=== PATIENT | female | born 1995 | race Caucasian/White ===

== ENCOUNTER 2016-09-09 10:35 | Emergency (ER) | payer MEDICAID, OTHER ==
--- NOTE | 2016-09-09 11:04 | ER Document Report ---
ED Medical Screen (RME) - General Chief Complaint: Headache Stated Complaint: WEAKNESS Time Seen by Provider: 09/09/16 11:01 Mode of Arrival: Ambulatory Information source: Patient Notes: -year-old female presents to ED with dizziness sleepiness unable to be aware of her surroundings at times nausea headaches migraines and shakes. She states that over the last couple days her mother has had to come out of the room and wake her up when her child was screaming decided. Patient does not have any psych history the only pain she is having now is headache she has had some dizziness lightheadedness. She is on Depakote last menstrual period was 2016. She does have a condition where her arms and legs are not the same size from left to right and has developed some most of her pain. I have greeted and performed a rapid initial assessment of this patient. A comprehensive ED assessment and evaluation of the patient, analysis of test results and completion of medical decision making process will be conducted by an additional ED providers. TRAVEL OUTSIDE OF THE [place] IN LAST 30 DAYS: No - Related Data Allergies/Adverse Reactions: cefixime [From Suprax] Allergy (Intermediate, Verified 09/09/16 10:38) Hives clarithromycin [From Biaxin] Allergy (Intermediate, Verified 09/09/16 10:38) Hives latex [Latex] Allergy (Verified 09/09/16 10:38) ondansetron HCl [From Zofran] Allergy (Verified 09/09/16 10:38) biaxin Allergy (Intermediate, Uncoded 09/09/16 10:38) Hives latex Allergy (Uncoded 09/09/16 10:38) Past Medical History Renal/ Medical History: Denies: Hx Peritoneal Dialysis Physical Exam - Vital signs Vitals: Temp Pulse Resp BP Pulse Ox 97.7 F 90 19 124/81 97 09/09/16 10:38 09/09/16 10:38 09/09/16 10:38 09/09/16 10:38 09/09/16 10:38 Course - Vital Signs Vital signs: Temp Pulse Resp BP Pulse Ox 97.7 F 90 19 124/81 97 09/09/16 10:38 09/09/16 10:38 09/09/16 10:38 09/09/16 10:38 09/09/16 10:38
[2016-09-09 12:20] LABS: ABSOLUTE EOSINOPHILS # (AUTO) 0.1 10^3/uL (0.0-0.6); ABSOLUTE LYMPHOCYTES (AUTO) 1.9 10^3/uL (0.5-4.7); ABSOLUTE MONOCYTES (AUTO) 0.3 10^3/uL (0.1-1.4); ABSOLUTE NEUT (AUTO) 4.5 10^3/uL (1.7-8.2); BASOPHILS % (AUTO) 0.3 % (0-2); HEMATOCRIT 38.5 % (36.0-47.0); HEMOGLOBIN 12.4 g/dL (12.0-15.5); HGB HCT DIFFERENCE -1.3; LYMPHOCYTES % (AUTO) 27.5 % (13-45); MEAN CORPUSCULAR HEMOGLOBIN 27.4 pg (27.0-33.4); MEAN CORPUSCULAR HGB CONC 32.1 g/dL (32.0-36.0); MEAN CORPUSCULAR VOLUME 85 fl (80-97); MONOCYTES % (AUTO) 4.4 % (3-13); RED BLOOD COUNT 4.52 10^6/uL (3.72-5.28); RED CELL DISTRIBUTION WIDTH 14.3 % (11.5-14.0); SEGMENTED NEUTROPHILS % (AUTO) 66.8 % (42-78); WHITE BLOOD COUNT 6.7 10^3/uL (4.0-10.5)
[2016-09-09 12:25] LABS: APPEARANCE,URINE SLIGHTLY-CLOUDY; BILIRUBIN,URINE NEGATIVE (NEGATIVE); GLUCOSE, URINE NEGATIVE (NEGATIVE); KETONES,URINE NEGATIVE (NEGATIVE); LEUKOCYTE ESTERASE,URINE TRACE (NEGATIVE); NITRITE,URINE NEGATIVE (NEGATIVE); PROTEIN,URINE NEGATIVE (NEGATIVE); URINE SPECIFIC GRAVITY 1.025; UROBILINOGEN,URINE NEGATIVE mg/dL (<2.0)
[2016-09-09 12:37] LABS: ALANINE AMINOTRANSFERASE 35 U/L (9-52); ALBUMIN 4.8 g/dL (3.5-5.0); ALKALINE PHOSPHATASE 86 U/L (38-126); ANION GAP 17 (5-19); ASPARTATE AMINO TRANSFERASE 20 U/L (14-36); BILIRUBIN,DIRECT 0.2 mg/dL (0.0-0.4); BILIRUBIN,TOTAL 1.1 mg/dL (0.2-1.3); BLOOD UREA NITROGEN 12 mg/dL (7-20); CALCIUM 9.8 mg/dL (8.4-10.2); CARBON DIOXIDE 22 mmol/L (22-30); CHLORIDE 105 mmol/L (98-107); CREATININE RESULT 0.56 mg/dL (0.52-1.25); GLUCOSE 84 mg/dL (75-110); POTASSIUM 4.5 mmol/L (3.6-5.0); SODIUM 144.3 mmol/L (137-145)
--- NOTE | 2016-09-09 14:10 | ER Document Report ---
ED General - General Chief Complaint: Headache Stated Complaint: WEAKNESS Time Seen by Provider: 09/09/16 11:01 Mode of Arrival: Ambulatory Information source: Patient TRAVEL OUTSIDE OF THE [place] IN LAST 30 DAYS: No - HPI Patient complains to provider of: Fatigue, headache, nausea, dizziness Onset: Other - 2 Weeks Onset/Duration: Intermittent Quality of pain: Achy Severity: Mild Pain Level: 1 Associated symptoms: Body/muscle aches, Headache, Nausea, Weakness Exacerbated by: Denies Relieved by: Denies Similar symptoms previously: No Recently seen / treated by doctor: No Notes: Patient is a 21-year-old female who presents to the emergency room complaining of 2 week history of increased fatigue with increased sleepiness, headaches, nausea next, dizzy spells, lower abdominal pain,, she denies any dysuria, no vaginal discharge or irregular bleeding, she is currently menstruating - Related Data Allergies/Adverse Reactions: cefixime [From Suprax] Allergy (Intermediate, Verified 09/09/16 10:38) Hives clarithromycin [From Biaxin] Allergy (Intermediate, Verified 09/09/16 10:38) Hives latex [Latex] Allergy (Verified 09/09/16 10:38) ondansetron HCl [From Zofran] Allergy (Verified 09/09/16 10:38) biaxin Allergy (Intermediate, Uncoded 09/09/16 10:38) Hives latex Allergy (Uncoded 09/09/16 10:38) Past Medical History - General Information source: Patient - Social History Smoking Status: Never Smoker Family History: Reviewed & Not Pertinent Patient has suicidal ideation: No Patient has homicidal ideation: No Renal/ Medical History: Denies: Hx Peritoneal Dialysis Review of Systems - Review of Systems Constitutional: See HPI EENT: No symptoms reported Cardiovascular: No symptoms reported Respiratory: No symptoms reported Gastrointestinal: See HPI Genitourinary: No symptoms reported Female Genitourinary: No symptoms reported Musculoskeletal: See HPI Skin: No symptoms reported Hematologic/Lymphatic: No symptoms reported Neurological/Psychological: See HPI -: Yes All other systems reviewed and negative Physical Exam - Vital signs Vitals: Temp Pulse Resp BP Pulse Ox 97.7 F 90 19 124/81 97 09/09/16 10:38 09/09/16 10:38 09/09/16 10:38 09/09/16 10:38 09/09/16 10:38 Interpretation: Normal - General General appearance: Appears well, Alert - HEENT Head: Normocephalic, Atraumatic Eyes: Normal Pupils: PERRL - Respiratory Respiratory status: No respiratory distress Chest status: Nontender Breath sounds: Normal Chest palpation: Normal - Cardiovascular Rhythm: Regular Heart sounds: Normal auscultation Murmur: No - Abdominal Inspection: Normal Distension: No distension Bowel sounds: Normal Tenderness: Nontender Organomegaly: No organomegaly - Back Back: Normal, Nontender - Extremities General upper extremity: Normal inspection, Nontender, Normal color, Normal ROM , Normal temperature General lower extremity: Normal inspection, Nontender, Normal color, Normal ROM , Normal temperature, Normal weight bearing, Other - Lower extremity has diffuse swelling with prominent varicose vein which are chronic in nature. No: Chaz's sign - Neurological Neuro grossly intact: Yes Cognition: Normal Orientation: AAOx4 John Coma Scale Eye Opening: Spontaneous [place] Coma Scale Verbal: Oriented [place] Coma Scale Motor: Obeys Commands John Coma Scale Total: 15 Speech: Normal Motor strength normal: LUE, RUE, LLE, RLE Sensory: Normal - Psychological Associated symptoms: Normal affect, Normal mood - Skin Skin Temperature: Warm Skin Moisture: Dry Skin Color: Normal, Hyperpigmentation - Hyperpigmented skin to bilateral upper extremities chronic in nature Course - Re-evaluation Re-evalutation: 09/09/16 18:52 Findings were discussed with patient at bedside which are fairly unremarkable except for mild leukocytosis and trace blood in her urine, for this she was started on antibiotics, advised to rest, follow-up with a primary care provider or return if symptoms worsen, patient acknowledges understanding and agreement with this plan - Vital Signs Vital signs: Temp Pulse Resp BP Pulse Ox 97.5 F 99 16 119/74 99 09/09/16 14:21 09/09/16 14:21 09/09/16 14:21 09/09/16 14:21 09/09/16 14:21 - Laboratory Result Diagrams: 09/09/16 12:00 09/09/16 12:00 Laboratory results interpreted by me: 09/09/16 09/09/16 12:00 12:00 RDW 14.3 H Urine Blood MODERATE H Ur Leukocyte Esterase TRACE H Discharge - Discharge Clinical Impression: Urinary tract infection Qualifiers: Urinary tract infection type: site unspecified Hematuria presence: without hematuria Qualified Code(s): N39.0 - Urinary tract infection, site not specified Condition: Stable Disposition: HOME, SELF-CARE Instructions: Urinary Tract Infection ([facility]), Headache ([facility]) Additional Instructions: Follow up with your primary care provider in one to 2 days. Return to the emergency room immediately if symptoms worsen or any additional concerns. Prescriptions: Cephalexin Monohydrate [Keflex 500 mg Capsule] 500 mg PO BID #20 capsule Promethazine HCl [Phenergan 25 mg Tablet] 25 - 50 mg PO ASDIR PRN #12 tablet PRN Reason: Forms: Return to Work Referrals: JACKIE SR MD [Primary Care Provider] - Follow up as needed
[2016-09-09] MEDS ORDERED: CEPHALEXIN 500 MG CAPSULE PO ONE (14:13)
[2016-09-09 14:23] VITALS: BP 119/74
== END 2016-09-09 14:21 | disposition home or self-care (01) ==
LOC: ER 10:35
DX: N39.0 Urinary tract infection, site not specified (principal); R53.83 Other fatigue; R51 Headache; R11.0 Nausea; M79.1 Myalgia; R53.1 Weakness; R42 Dizziness and giddiness; R10.30 Lower abdominal pain, unspecified; I83.899 Varicose veins of unspecified lower extremity with other complications; L81.9 Disorder of pigmentation, unspecified; Z88.1 Allergy status to other antibiotic agents; Z91.040 Latex allergy status; Z88.8 Allergy status to other drugs, medicaments and biological substances; D72.829 Elevated white blood cell count, unspecified
CPT/HCPCS: 36415; 80053; 81001; 84703; 85025; 99284

== ENCOUNTER 2016-12-07 09:35 | Inpatient (IN) | payer OTHER ==
[2016-12-07] MEDS ORDERED: METOCLOPRAMIDE HCL INJ/PF 10 MG/2 ML SDV IV ONE (09:44)
--- NOTE | 2016-12-07 09:58 | ER Document Report ---
ED General - General Chief Complaint: Nausea/Vomiting Stated Complaint: ABDOMINAL PAIN Time Seen by Provider: 12/07/16 09:40 Mode of Arrival: Ambulatory Information source: Patient Notes: 21-year-old female presents with complaints of nausea vomiting generalized abdominal pain of 3-4 day duration. Patient was seen at urgent care yesterday diagnosed with viral syndrome. Patient was discharged home with Phenergan which she states she continues to vomit after taking. Patient denies any fevers states she does cough after the vomiting patient denies any fevers TRAVEL OUTSIDE OF THE [place] IN LAST 30 DAYS: No - HPI Onset: Other Onset/Duration: Persistent Quality of pain: Cramping Severity: Mild Pain Level: 1 Associated symptoms: Nausea, Vomiting Exacerbated by: Denies Relieved by: Denies Similar symptoms previously: Yes Recently seen / treated by doctor: Yes - Related Data Allergies/Adverse Reactions: cefixime [From Suprax] Allergy (Intermediate, Verified 12/07/16 09:40) Hives clarithromycin [From Biaxin] Allergy (Intermediate, Verified 12/07/16 09:40) Hives latex [Latex] Allergy (Verified 12/07/16 09:40) ondansetron HCl [From Zofran] Allergy (Verified 12/07/16 09:40) biaxin Allergy (Intermediate, Uncoded 12/07/16 09:40) Hives latex Allergy (Uncoded 12/07/16 09:40) Home Medications: Current Home Medications No Home Medications 12/07/16 [History] Past Medical History - Social History Smoking Status: Never Smoker Cigarette use (# per day): No Chew tobacco use (# tins/day): No Smoking Education Provided: No Family History: Reviewed & Not Pertinent Renal/ Medical History: Denies: Hx Peritoneal Dialysis Surgical Hx: Negative - Immunizations Hx Diphtheria, Pertussis, Tetanus Vaccination: No Review of Systems - Review of Systems Notes: REVIEW OF SYSTEMS: CONSTITUTIONAL : Denies fever, chills, or sweats. Denies recent illness. EENT: Denies eye, ear, throat, or mouth pain or symptoms. Denies nasal or sinus congestion or discharge. Denies throat, tongue, or mouth swelling or difficulty swallowing. CARDIOVASCULAR: Denies chest pain. Denies palpitations or racing or irregular heart beat. Denies ankle edema. RESPIRATORY: Denies cough, cold, or chest congestion. Denies shortness of breath, difficulty breathing, or wheezing. GASTROINTESTINAL: Admits to abdominal pain generalized nausea vomiting GENITOURINARY: Denies difficulty urinating, painful urination, burning, frequency, blood in urine, or discharge. FEMALE GENITOURINARY: Denies vaginal bleeding, heavy or abnormal periods, irregular periods. Denies vaginal discharge or odor. MUSCULOSKELETAL: Denies back or neck pain or stiffness. Denies joint pain or swelling. SKIN: Denies rash, lesions or sores. HEMATOLOGIC : Denies easy bruising or bleeding. LYMPHATIC: Denies swollen, enlarged glands. NEUROLOGICAL: Denies confusion or altered mental status. Denies passing out or loss of consciousness. Denies dizziness or lightheadedness. Denies headache. Denies weakness or paralysis or loss of use of either side. Denies problems with gait or speech. Denies sensory loss, numbness, or tingling. Denies seizures. PSYCHIATRIC: Denies anxiety or stress. Denies depression, suicidal ideation, or homicidal ideation. ALL OTHER SYSTEMS REVIEWED AND NEGATIVE. PHYSICAL EXAMINATION: GENERAL: Well-appearing, well-nourished and in no acute distress. HEAD: Atraumatic, normocephalic. EYES: Pupils equal round and reactive to light, extraocular movements intact, conjunctiva are normal. ENT: Nares patent, oropharynx clear without exudates. Moist mucous membranes. NECK: Normal range of motion, supple without lymphadenopathy LUNGS: Breath sounds clear to auscultation bilaterally and equal. No wheezes rales or rhonchi. HEART: Regular rate and rhythm without murmurs ABDOMEN: Soft, nontender, nondistended abdomen. No guarding, no rebound. No masses appreciated. Female : deferred Musculoskeletal: Normal range of motion, no pitting or edema. No cyanosis. NEUROLOGICAL: Cranial nerves grossly intact. Normal speech, normal gait. Normal sensory, motor exams PSYCH: Normal mood, normal affect. SKIN: Warm, Dry, normal turgor, no rashes or lesions noted. Dictation was performed using [employer] voice recognition software Physical Exam - Vital signs Vitals: Temp Pulse Resp BP Pulse Ox 97.3 F 101 H 16 128/93 H 98 12/07/16 09:38 12/07/16 09:38 12/07/16 09:38 12/07/16 09:38 12/07/16 09:38 Course - Re-evaluation Re-evalutation: 12/07/16 10:10 Overall well-appearing female no significant distress, lab work is pending at this time she will be given IV fluids nausea control 12/07/16 12:28 u/s is ocnsistant with choledocolithiaiss, dr mcdonough pagehailey 12/07/16 12:45 Dr Mcdonough spoke with Dr bowers who will call back 12/07/16 13:38 Dr Mcdonough will admit - Vital Signs Vital signs: Temp Pulse Resp BP Pulse Ox 97.3 F 101 H 16 128/93 H 98 12/07/16 09:38 12/07/16 09:38 12/07/16 09:38 12/07/16 09:38 12/07/16 09:38 - Laboratory Result Diagrams: 12/07/16 09:54 12/07/16 09:54 Laboratory results interpreted by me: 12/07/16 12/07/16 12/07/16 09:54 09:54 09:54 Hct 35.5 L Sodium 145.1 H Creatinine 0.51 L Glucose 116 H Total Bilirubin 5.1 H Direct Bilirubin 2.7 H AST 615 H ALT 932 H Alkaline Phosphatase 226 H Urine Protein 30 H Urine Ketones TRACE H Urine Bilirubin MODERATE H Urine Urobilinogen 4.0 H Urine Ascorbic Acid 40 H - Diagnostic Test Radiology reviewed: Image reviewed, Reports reviewed - Ultrasound is consistent with cholecystitis with probable ductal stone Discharge - Discharge Clinical Impression: Choledocholithiasis, Elevated liver enzymes Condition: Stable Disposition: ADMITTED INPATIENT Admitting Provider: Surgicalist Unit Admitted: Surgical Floor Referrals: JACKIE SR MD [Primary Care Provider] - Follow up as needed
[2016-12-07] MEDS ORDERED: NORMAL SALINE 1000 ML 1,000 ML IV ONE (10:05)
[2016-12-07 10:10] LABS: ABSOLUTE LYMPHOCYTES (AUTO) 0.7 10^3/uL (0.5-4.7); ABSOLUTE MONOCYTES (AUTO) 0.4 10^3/uL (0.1-1.4); ABSOLUTE NEUT (AUTO) 3.7 10^3/uL (1.7-8.2); BASOPHILS % (AUTO) 0.3 % (0-2); HEMATOCRIT 35.5 % (36.0-47.0); HGB HCT DIFFERENCE 0.5; LYMPHOCYTES % (AUTO) 15.3 % (13-45); MEAN CORPUSCULAR HEMOGLOBIN 28.7 pg (27.0-33.4); MEAN CORPUSCULAR HGB CONC 33.9 g/dL (32.0-36.0); MEAN CORPUSCULAR VOLUME 85 fl (80-97); MONOCYTES % (AUTO) 7.5 % (3-13); RED BLOOD COUNT 4.19 10^6/uL (3.72-5.28); SEGMENTED NEUTROPHILS % (AUTO) 75.9 % (42-78); WHITE BLOOD COUNT 4.8 10^3/uL (4.0-10.5)
[2016-12-07 10:17] LABS: APPEARANCE,URINE SLIGHTLY-CLOUDY; BILIRUBIN,URINE MODERATE (NEGATIVE); GLUCOSE, URINE NEGATIVE (NEGATIVE); KETONES,URINE TRACE mg/dL (NEGATIVE); LEUKOCYTE ESTERASE,URINE NEGATIVE (NEGATIVE); NITRITE,URINE NEGATIVE (NEGATIVE); PROTEIN,URINE 30 mg/dL (NEGATIVE); URINE SPECIFIC GRAVITY 1.027
[2016-12-07 10:28] LABS: ALANINE AMINOTRANSFERASE 932 U/L (9-52); ALBUMIN 4.6 g/dL (3.5-5.0); ALKALINE PHOSPHATASE 226 U/L (38-126); ANION GAP 15 (5-19); ASPARTATE AMINO TRANSFERASE 615 U/L (14-36); BILIRUBIN,DIRECT 2.7 mg/dL (0.0-0.4); BILIRUBIN,TOTAL 5.1 mg/dL (0.2-1.3); BLOOD UREA NITROGEN 8 mg/dL (7-20); CALCIUM 9.9 mg/dL (8.4-10.2); CARBON DIOXIDE 24 mmol/L (22-30); CHLORIDE 106 mmol/L (98-107); CREATININE RESULT 0.51 mg/dL (0.52-1.25); GLUCOSE 116 mg/dL (75-110); LIPASE 228.8 U/L (23-300); POTASSIUM 3.9 mmol/L (3.6-5.0); SODIUM 145.1 mmol/L (137-145); TOTAL PROTEIN 8.2 g/dL (6.3-8.2)
--- NOTE | 2016-12-07 12:13 | RADIOLOGY REPORT (SQ) ---
EXAM DESCRIPTION: U/S ABDOMEN LIMITED W/O DOP COMPLETED DATE/TIME: 12/07/2016 11:57 am REASON FOR STUDY: RUQ pain, elevated liver enzymes COMPARISON: None. TECHNIQUE: Dynamic and static grayscale images acquired of the abdomen and recorded on PACS. Additio nal selected color Doppler and spectral images recorded. LIMITATIONS: None. FINDINGS: PANCREAS: 1.6 cm circumscribed hypoechoic lesion in or adjacent to the head of the pancrea s. Visualized pancreatic duct normal caliber. LIVER: No masses. Echotexture normal. LIVER VASCULATURE: Normal directional flow of the main portal vein and hepatic veins. GALLBLADDER: Gallstone(s). No pericholecystic fluid. No wall thickening. ULTRASOUND-DETECTED LITTLE'S SIGN: Positive. INTRAHEPATIC DUCTS AND COMMON DUCT: Common bile duct is dilated, measuring 1.0 cm. INFERIOR VENA CAVA: Normal flow. AORTA: No aneurysm. RIGHT KIDNEY: Normal size. Normal echogenicity. No solid or suspicious masses. No hydronephrosis. No calcifications. PERITONEAL AND RIGHT PLEURAL SPACE: No ascites or effusions. OTHER: No other significant findings. IMPRESSION: 1. GALLSTONES. POSITIVE SONOGRAPHIC LITTLE SIGN POSSIBLY INDICATING ACUTE CHOLECYSTITIS. 2. DILATED COMMON BILE DUCT. CONSIDER POSSIBILITY OF DISTAL DUCTAL STONE. 3. CIRCUMSCRIBED HYPOECHOIC MASS IN OR ADJACENT TO THE HEAD OF THE PANCREAS. THIS COULD BE A LYMPH N ODE OR OTHER LESION. RECOMMEND FOLLOW-UP CT OR MRI OF THE PANCREAS WHEN CLINICALLY APPROPRIATE. TECHNICAL DOCUMENTATION: JOB ID: [id number] [employer]- All Rights Reserved
[2016-12-07] MEDS ORDERED: HYDROMORPHONE HCL INJ/PF 2 MG/ML AMPULE IV ONE (12:27)
[2016-12-07] MEDS ORDERED: NORMAL SALINE 1000 ML 1,000 ML IV PRN (12:29)
[2016-12-07] MEDS ORDERED: ERTAPENEM SODIUM INJ 1 GM VIAL IV ONE (12:29)
[2016-12-07] MEDS: HYDROMORPHONE HCL INJ/PF 2 MG/ML AMPULE IV PRN ×2 (16:14→20:11)
[2016-12-07] MEDS: PROMETHAZINE HCL INJ 25 MG/1 ML VIAL IV PRN ×2 (16:14→20:11)
--- NOTE | 2016-12-07 18:27 | HISTORY AND PHYSICAL E ---
History and Physical NAME: BRUNA HASSAN : 1995 AGE: 21Y ADMITTED: 12/07/2016 ROOM: 435 CHIEF COMPLAINT: Abdominal pains. HISTORY OF PRESENT ILLNESS: This is a 21-year-old female who started complaining of abdominal pain. She had nausea and vomiting on 12/05/2016. She went to an urgent care yesterday and diagnosed her with viral disease. She went to the emergency room today because of persistent abdominal pains with nausea and vomiting. She had an ultrasound of the gallbladder which showed gallstones but no pericholecystic fluid, but has a Seymour's sign suspicious for acute cholecystitis. Her common bile duct is also dilated to about 10 mm. Her lab showed a white count of 4.8 and hemoglobin of 12.0. Her direct bilirubin is 2.7 with a total bilirubin of 5.1. Her AST is 615, ALT is 932, and alkaline phosphatase is 226 with a lipase normal at 228. REVIEW OF SYSTEMS: HEENT: Denies any headaches, ear, or visual problems. No nasal discharge or sore throat. CARDIOVASCULAR: No chest pains. RESPIRATORY: No shortness of breath, no wheezing. GASTROINTESTINAL: Abdominal pains with nausea and vomiting as in HPI. EXTREMITIES: No joint pains. HEMATOLOGIC: No easy bruisability. INTEGUMENTARY: Has a congenital skin discoloration. GENITOURINARY: No difficulty voiding. Female genitourinary. Denies vaginal bleeding or heavy or abnormal periods. LYMPHATIC: Denies swollen enlarged glands. NEUROLOGIC: No altered mental status or seizures. PSYCHIATRIC: Denies anxiety or stress. All other systems reviewed and negative. ALLERGIES: 1. BIAXIN. 2. CEFIXIME. 3. ZOFRAN. 4. LATEX ALLERGY. SOCIAL HISTORY: Denies smoking, alcohol use, or recreational drug use. SURGICAL HISTORY: Negative. She did have a normal vaginal delivery 18 months ago. FAMILY HISTORY: Noncontributory. PHYSICAL EXAMINATION: VITAL SIGNS: Temperature 97.3 degrees Fahrenheit, heart rate of 101 per minute, respiratory rate of 16 per minute, blood pressure 128/93, and a pulse ox of 98% on room air. GENERAL: Well appearing, well nourished, complaining of abdominal pains. HEENT: Atraumatic, normocephalic. Eyes: Pupils equal and reactive to light. ENT: No exudates and moist mucous membranes. NECK: Supple without lymphadenopathy. LUNGS: Clear. HEART: Showed regular sinus rhythm actively with a heart rate of 101 per minute. ABDOMEN: Soft with tenderness in the epigastric area and the right upper quadrant. EXTREMITIES: No edema. NEUROLOGIC: Cranial nerves intact. Normal gait and normal sensory motor exams. PSYCHIATRIC: Normal mood and normal affect. SKIN: Warm and dry. Normal turgor. 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 IMPRESSION: Common bile duct stone with possible acute cholecystitis. PLAN: 1. Will do an MRCP. 2. No GI but able to get in touch with Dr. Albert who will call me back. 3. Will start her on IV antibiotics and keep her n.p.o. and hydrate. DICTATING PHYSICIAN: ERIK DELONG M.D. [id number] PHY#: [id number] ID: [id number] JOB#: [id number] ACCT: [id number] cc: >
[2016-12-08] MEDS: HYDROMORPHONE HCL INJ/PF 2 MG/ML AMPULE IV PRN ×3 (00:19→08:46)
[2016-12-08] MEDS: PROMETHAZINE HCL INJ 25 MG/1 ML VIAL IV PRN ×3 (00:19→08:56)
[2016-12-08 05:04] LABS: HEMATOCRIT 30.4 % (36.0-47.0); HEMOGLOBIN 10.3 g/dL (12.0-15.5); HGB HCT DIFFERENCE 0.5; MEAN CORPUSCULAR HEMOGLOBIN 28.6 pg (27.0-33.4); MEAN CORPUSCULAR VOLUME 84 fl (80-97); RED BLOOD COUNT 3.61 10^6/uL (3.72-5.28); RED CELL DISTRIBUTION WIDTH 14.1 % (11.5-14.0); WHITE BLOOD COUNT 4.4 10^3/uL (4.0-10.5)
[2016-12-08 05:13] LABS: PROTHROMBIN TIME 13.3 SEC (11.4-15.4)
[2016-12-08 05:24] LABS: ALANINE AMINOTRANSFERASE 637 U/L (9-52); ALBUMIN 3.4 g/dL (3.5-5.0); ALKALINE PHOSPHATASE 195 U/L (38-126); ASPARTATE AMINO TRANSFERASE 276 U/L (14-36); BILIRUBIN,DIRECT 2.6 mg/dL (0.0-0.4); BILIRUBIN,TOTAL 4.4 mg/dL (0.2-1.3); TOTAL PROTEIN 6.2 g/dL (6.3-8.2)
[2016-12-08] MEDS: NORMAL SALINE 1000 ML 1,000 ML IV PRN ×2 (05:26→12:15)
[2016-12-08] MEDS ORDERED: FENTANYL CITRATE INJ/PF 100 MCG/2 ML AMPUL ONE (13:00)
[2016-12-08] MEDS ORDERED: ONDANSETRON HCL INJ/PF 4 MG/2 ML SDV ONE (13:00)
[2016-12-08] MEDS ORDERED: MIDAZOLAM 2 MG/2 ML INJ ONE (13:00)
[2016-12-08] MEDS ORDERED: LIDOCAINE 2% INJ-PF (20 MG/ML) 10 ML AMPUL ONE (13:00)
[2016-12-08] MEDS ORDERED: PROPOFOL INJ 200 MG/20 ML VIAL IV ONE (13:01)
[2016-12-08] MEDS ORDERED: GLUCAGON,HUMAN RECOMB 1 MG INJ ONE (13:11)
[2016-12-08] MEDS ORDERED: MEPERIDINE HCL/PF INJ 25 MG/1 ML DISP.SYRIN IV PRN (14:10)
[2016-12-08] MEDS ORDERED: MORPHINE SULFATE 10 MG/ML INJ IV PRN (14:10)
[2016-12-08] MEDS ORDERED: DIPHENHYDRAMINE HCL 50 MG/ML VIAL IV PRN (14:10)
[2016-12-08] MEDS ORDERED: PROMETHAZINE HCL INJ 25 MG/1 ML VIAL IV PRN ×2 (14:10)
[2016-12-08] MEDS ORDERED: FENTANYL CITRATE INJ/PF 100 MCG/2 ML AMPUL IV PRN ×3 (14:10)
[2016-12-08] MEDS ORDERED: OXYCODONE-ACETAMINOPHEN 5-325 MG TABLET PO PRN ×2 (14:10)
[2016-12-08] MEDS ORDERED: NORMAL SALINE 1000 ML 1,000 ML IV PRN (14:24)
--- NOTE | 2016-12-08 16:03 | RADIOLOGY REPORT (SQ) ---
EXAM DESCRIPTION: ENDO CATH/BILIARY DUCT COMPLETED DATE/TIME: 12/08/2016 2:32 pm REASON FOR STUDY: SPHINCTEROTOMY COMPARISON: None. FLUOROSCOPY TIME: 1.9 minutes Spot images saved to PACS. TECHNIQUE: Intra-operative images acquired during surgical procedure to evaluate progress. NUMBER OF IMAGES: 5 LIMITATIONS: None. FINDINGS: Fluoroscopy was provided for intraoperative procedure. Please refer to the operative repo rt for further discussion. IMPRESSION: IMAGE(S) OBTAINED DURING PROCEDURE. COMMENT: Quality ID [id number]: Final reports for procedures using fluoroscopy that document radiation exp osure indices, or exposure time and number of fluorographic images (if radiation exposure indices are not available) Please consult full operative report of the attending physician for description of the procedure. TECHNICAL DOCUMENTATION: JOB ID: [id number] [employer]- All Rights Reserved
--- NOTE | 2016-12-08 16:04 | RADIOLOGY REPORT (SQ) ---
EXAM DESCRIPTION: NO CHG FLUORO COMPLETE DATE/TIME: 12/08/2016 2:32 pm REASON FOR STUDY: SPHINCTEROTOMY FINDINGS: Please see combined report for performance of procedure and radiologic supervision and int erpretation. IMPRESSION: Please see combined report for performance of procedure and radiologic supervision and i nterpretation.
--- NOTE | 2016-12-08 17:38 | OPERATIVE REPORT E ---
Operative Report NAME: BRUNA HASSAN : 1995 AGE: 21Y DATE OF SURGERY: 12/08/2016 ROOM: 435 PREOPERATIVE DIAGNOSES: 1. Jaundice. 2. Dilated common bile duct. POSTOPERATIVE DIAGNOSIS: Common bile duct stones. OPERATION: ERCP with sphincterotomy and balloon stone extraction. SURGEON: ROLANDO SHEPARD M.D. ANESTHESIA: As per Anesthesia. TISSUE REMOVED OR ALTERED: None. PROCEDURE: After informed consent obtained from patient, she was placed under anesthesia with propofol. The ERCP endoscope was then inserted into the esophagus and advanced into the duodenum. The common ampulla was identified and this was freely cannulated with the triple-lumen sphincterotomy catheter. A cholangiogram was obtained and this showed a filling defect in the proximal common bile duct. The common bile duct and the intrahepatic duct were slightly dilated. A good sized sphincterotomy was then performed using the endo cut mode. The catheter was then removed over the guidewire and replaced with a 12 mm balloon catheter. This was inflated in the proximal common bile duct and pulled down the duct. A moderate sized multifaceted stone was extracted, in addition to a tiny stone. The duct was cleared 2 more times. Balloon occlusion cholangiogram was normal. The pancreatic duct was intentionally not cannulated. Patient tolerated the procedure well. PLAN: Proceed with cholecystectomy. DICTATING PHYSICIAN: ROLANDO SHEPARD M.D. [id number] FÁTIMAY#: [id number] ID: [id number] JOB#: [id number] ACCT: [id number] cc:ROLANDO SHEPARD M.D. > [facility]
--- NOTE | 2016-12-08 17:52 | CONSULTATION REPORT E ---
Consultation Report NAME: BRUNA HASSAN : 1995 AGE: 21Y DATE: 12/07/2016 435 A TO: ROLANDO SHEPARD M.D. FROM: SURGICALIST HISTORY: A 21-year-old patient admitted through the emergency room with abdominal pain, nausea, and vomiting. The pain is in the epigastrium and is relieved or at least decreased by vomiting. She has had 3 other episodes within the last year. Each time, she was diagnosed with a UTI. She did not have any blood work at any of the previous episodes until now. On admission, her bilirubin was 5 with elevated transaminases and a normal lipase. Her ultrasound showed a dilated common bile duct up to 1 cm with gallstones. There was also a circumscribed hypoechoic mass just into the head of the pancreas. She has no previous history of liver disease. PAST MEDICAL HISTORY: None significant. PAST SURGICAL HISTORY: None. ALLERGIES: 1. LATEX. 2. ZOFRAN. 3. CEFIXIME. 4. BIAXIN. REVIEW OF SYSTEMS: Other than the above, is not contributory. PHYSICAL EXAMINATION: GENERAL: Shows an obese lady in no distress. HEENT: She is jaundiced, but not pale. Oropharynx normal. NECK: No bruit. No JVD. CHEST: No deformity. LUNGS: Clear. HEART: Sounds 1 and 2 normal without murmurs. ABDOMEN: Soft and obese with mild tenderness in the epigastrium. Liver and spleen not palpable. Bowel sounds normal. NEUROLOGIC: Grossly nonfocal. LABORATORY TESTS: On 12/07/2016, showed a normal CBC. A sodium of 145, bilirubin of 5, direct of 2.7, AST 615, ALT 932, alkaline phosphatase 226, lipase of 228. She was sent for hepatitis A, B, and C serology. ASSESSMENT AND PLAN: 1. Abdominal pain and jaundice. Recurrent abdominal pain as stated with jaundice and gallstones is suggestive of choledocholithiasis. Her common bile duct was also dilated. The need for an endoscopic retrograde cholangiopancreatography, including the risks and benefits, was explained to the patient and her mother. She will undergo cholecystectomy soon after. 2. Abnormal head of the pancreas on ultrasound. The etiology for this is not clear. She will need a CAT scan or an MRI for further evaluation of this area. This could be performed in-house or as outpatient. DICTATING PHYSICIAN: ROLANDO SHEPARD M.D. [id number] PHY#: [id number] ID: [id number] JOB#: [id number] ACCT: [id number] cc:Rosmery GLEASON M.D. >
--- NOTE | 2016-12-08 17:53 | PROGRESS NOTE E ---
Progress Note NAME: BRUNA HASSAN : 1995 AGE: 21Y DATE: 12/08/2016 ROOM: 435 SUBJECTIVE: Patient just came back after successful ERCP with removal of common duct stone by Dr. Albert. Patient claims she does not have any more abdominal pains and she is hungry. OBJECTIVE: Abdomen is soft and nontender. PLAN: The plan is to do a laparoscopic cholecystectomy tomorrow by Dr. Márquez. We will recheck the LFTs in the morning. We will give her clear liquids and soft diet tonight and n.p.o. after midnight. DICTATING PHYSICIAN: ERIK DELONG M.D. [id number] PHY#: [id number] ID: [id number] JOB#: [id number] ACCT: [id number] cc: >
[2016-12-08] MEDS: ERTAPENEM SODIUM 1 GM in NORMAL SALINE 50 ML IV SCH (18:40)
[2016-12-09] MEDS: PROMETHAZINE HCL INJ 25 MG/1 ML VIAL IV PRN ×2 (05:59→13:07)
[2016-12-09 06:03] LABS: HEMATOCRIT 32.4 % (36.0-47.0); HEMOGLOBIN 11.1 g/dL (12.0-15.5); HGB HCT DIFFERENCE 0.9; MEAN CORPUSCULAR HEMOGLOBIN 29.2 pg (27.0-33.4); MEAN CORPUSCULAR HGB CONC 34.2 g/dL (32.0-36.0); MEAN CORPUSCULAR VOLUME 85 fl (80-97); RED BLOOD COUNT 3.79 10^6/uL (3.72-5.28); RED CELL DISTRIBUTION WIDTH 14.6 % (11.5-14.0); WHITE BLOOD COUNT 5.1 10^3/uL (4.0-10.5)
[2016-12-09 06:30] LABS: ALANINE AMINOTRANSFERASE 479 U/L (9-52); ALBUMIN 3.6 g/dL (3.5-5.0); ALKALINE PHOSPHATASE 196 U/L (38-126); ASPARTATE AMINO TRANSFERASE 116 U/L (14-36); BILIRUBIN,DIRECT 0.7 mg/dL (0.0-0.4); BILIRUBIN,TOTAL 1.3 mg/dL (0.2-1.3); TOTAL PROTEIN 6.3 g/dL (6.3-8.2)
[2016-12-09] MEDS ORDERED: PROPOFOL INJ 200 MG/20 ML VIAL IV ONE (07:46)
[2016-12-09] MEDS ORDERED: HYDROMORPHONE HCL INJ/PF 2 MG/ML AMPULE ONE (07:46)
[2016-12-09] MEDS ORDERED: IBUPROFEN INJ 800 MG/8 ML VIAL IV ONE (07:46)
[2016-12-09] MEDS ORDERED: MIDAZOLAM 2 MG/2 ML INJ ONE (07:46)
[2016-12-09] MEDS ORDERED: ACETAMINOPHEN 100 ML IV ONE (07:46)
--- NOTE | 2016-12-09 08:27 | PDOC PROGRESS REPORT ---
Subjective Progress Note for:: 12/09/16 Subjective:: No complaints, no pain medication taken. Voiding. Physical Exam Vital Signs: Temp Pulse Resp BP Pulse Ox 97 F L 86 14 130/76 H 96 12/09/16 07:59 12/09/16 07:59 12/09/16 07:59 12/09/16 07:59 12/09/16 07:59 Intake & Output 12/08/16 12/09/16 12/10/16 06:59 06:59 06:59 Intake Total 4400 3610 Output Total 0 Balance 4400 3610 Weight 100.4 kg 100.4 kg General appearance: PRESENT: no acute distress GI/Abdominal exam: PRESENT: other - Soft, nontender, nondistended, no peritoneal signs. Results Laboratory Results: 12/09/16 04:57 12/09/16 12/09/16 04:57 04:57 WBC 5.1 RBC 3.79 Hgb 11.1 L Hct 32.4 L MCV 85 MCH 29.2 MCHC 34.2 RDW 14.6 H Plt Count 264 Total Bilirubin 1.3 AST 116 H ALT 479 H Alkaline Phosphatase 196 H Total Protein 6.3 Albumin 3.6 Impressions: Abdomen Ultrasound 12/07/16 10:31 IMPRESSION: 1. GALLSTONES. POSITIVE SONOGRAPHIC LITTLE SIGN POSSIBLY INDICATING ACUTE CHOLECYSTITIS. 2. DILATED COMMON BILE DUCT. CONSIDER POSSIBILITY OF DISTAL DUCTAL STONE. 3. CIRCUMSCRIBED HYPOECHOIC MASS IN OR ADJACENT TO THE HEAD OF THE PANCREAS. THIS COULD BE A LYMPH NODE OR OTHER LESION. RECOMMEND FOLLOW-UP CT OR MRI OF THE PANCREAS WHEN CLINICALLY APPROPRIATE. Catheter Placement 12/08/16 00:00 IMPRESSION: IMAGE(S) OBTAINED DURING PROCEDURE. Fluoroscopy 12/08/16 00:00 IMPRESSION: Please see combined report for performance of procedure and radiologic supervision and interpretation. Assessment & Plan - Diagnosis (1) Choledocholithiasis Is this a current diagnosis for this admission?: Yes Plan: Now 1 day status post ERCP, sphincterotomy, stone extraction with clinical resolution of abdominal pain. Liver function studies are normalizing in a predictable fashion. Plan: 1. Proceed with laparoscopic, possible open cholecystectomy, main OR, no drain anticipated, general anesthesia. The wrist benefits and alternatives to the planned procedure were explained to the patient and her father including bleeding, infection, bile duct injury, bile leak, and need for additional surgery. I believe they understand and agree to proceed. Yulisa. 2. Anticipate discharge home later today or tomorrow.
[2016-12-09] MEDS ORDERED: BUPIVACAINE HCL 0.25 % INJ/PF (2.5 MG/1 ML) 30 ML VIAL ONE (08:43)
[2016-12-09] MEDS ORDERED: OXYCODONE-ACETAMINOPHEN 5-325 MG TABLET PO PRN (08:54)
[2016-12-09] MEDS ORDERED: PROMETHAZINE HCL INJ 25 MG/1 ML VIAL IV PRN ×2 (08:54)
[2016-12-09] MEDS ORDERED: FENTANYL CITRATE INJ/PF 100 MCG/2 ML AMPUL IV PRN ×3 (08:54)
[2016-12-09] MEDS ORDERED: DIPHENHYDRAMINE HCL 50 MG/ML VIAL IV PRN (08:54)
[2016-12-09] MEDS ORDERED: MEPERIDINE HCL/PF INJ 25 MG/1 ML DISP.SYRIN IV PRN (08:54)
[2016-12-09] MEDS ORDERED: MORPHINE SULFATE 10 MG/ML INJ IV PRN (09:59)
[2016-12-09] MEDS ORDERED: ONDANSETRON HCL INJ/PF 4 MG/2 ML SDV IV PRN (10:00)
[2016-12-09] MEDS ORDERED: KETOROLAC TROMETHAMINE 10 MG TABLET PO PRN (10:00)
--- NOTE | 2016-12-09 10:14 | Operative Report ---
Operative Report DATE OF SURGERY: 12/09/16 PREOPERATIVE DIAGNOSIS: Symptomatic GS; acute cholecystitis POSTOPERATIVE DIAGNOSIS: same OPERATION: Laparoscopic Cholecystectomy SURGEON: DAVID ESPINOZA ANESTHESIA: GA TISSUE REMOVED OR ALTERED: GB with stones COMPLICATIONS: none ESTIMATED BLOOD LOSS: 25 cc INTRAOPERATIVE FINDINGS: see below PROCEDURE: The patient was taken from the preop holding area the main operating where general anesthesia was induced. The abdomen was exposed, prepped draped sterile fashion. His mentation was set up for laparoscopic cholecystectomy. Surgical plan surgical timeout were conducted. Supraumbilical sub-xiphoid and right upper quadrant areas were anesthetized with quarter percent Marcaine. A supraumbilical vertical incision made with a knife, Veress needle inserted the perineal cavity pneumoperitoneum was established. The Veress needle was removed, 5 mm ports inserted a 5 mm scope was inserted. Under direct visualization 3 additional ports were placed one in the subxiphoid to in subcostal position. Findings were significant for acute cholecystitis. The gallbladder was swollen , edematous, and discolored. Gastro duodenal omentum was stuck to the gallbladder and all of these adhesions were taken down using a combination of blunt and electrocautery and scissor dissection. We now grasped the gallbladder from the fundus, and infundibulum, and reflected up over the liver bed. We dissected out the neck of the gallbladder. The anatomy here was classic. The dominant cystic artery, the cystic duct, node of Calot all dissected out, and photographed. The triangle of Calot was opened widely. The cystic duct was very generous and felt to possibly contain stones. The cystic artery was clipped twice proximally once distally divided with scissors. The node of Calot low was swept medially. We now elected to take the gallbladder down from the fundus and so graspers were rearranged and we took the gallbladder down with electrocautery under excellent visualization and traction. Eventually we had the gallbladder suspended solely from the cystic duct. Arriving at this point, blood loss was minimal. Visualization was excellent. We placed a 0 PDS Endoloop around the base of gallbladder at its junction with the cystic duct. We now opened the cystic duct and encountered multiple small stones and a few medium size stones and we proceeded to milk the stones out of the cystic duct stump. I massaged this area as vigorously as I could safely manage, and irrigated what I could out of the orifice to the cystic duct stump. I never got return of bile however. Hopefully, with the patient having undergone ERCP and sphincterotomy, retained stones will not be a problem. A second Endoloop was placed around the gallbladder and secured onto the cystic duct stump. Cystic duct was divided, gallbladder removed the patient to the supraumbilical port site without spillage of stones. We returned the peritoneal cavity check bleeding there was none. Sponge and needle counts correct. All ports removed under direct visualization pneumoperitoneum evacuated and wounds closed with 0 Vicryl 3-0 Vicryl benzoin Steri-Strips. Patient tolerated the procedure well, extubated, taken recovery in stable condition.
[2016-12-09] MEDS ORDERED: FENTANYL CITRATE INJ/PF 100 MCG/2 ML AMPUL ONE (10:19)
[2016-12-09] MEDS: DOCUSATE SODIUM 100 MG CAPSULE PO SCH ×2 (10:25→15:57)
[2016-12-09] MEDS: PROMETHAZINE HCL INJ 25 MG/1 ML VIAL ONE ×2 (10:30→10:40)
[2016-12-09] MEDS: HYDROMORPHONE HCL INJ/PF 2 MG/ML AMPULE IV PRN (13:06)
[2016-12-09] MEDS ORDERED: METOCLOPRAMIDE HCL INJ/PF 10 MG/2 ML SDV ONE (13:34)
[2016-12-09] MEDS ORDERED: SUCCINYLCHOLINE CHLORIDE INJ 200 MG/10 ML VIAL ONE (13:34)
[2016-12-09] MEDS ORDERED: PHENYLEPHRINE HCL INJ/PF 10 MG/1 ML SDV ONE (13:34)
[2016-12-09] MEDS ORDERED: GLYCOPYRROLATE INJ 0.4 MG/2 ML VIAL ONE (13:34)
[2016-12-09] MEDS ORDERED: LIDOCAINE 2% INJ-PF (20 MG/ML) 10 ML AMPUL ONE (13:34)
[2016-12-09] MEDS ORDERED: DEXAMETHASONE SOD PHOSPHATE INJ 4 MG/1 ML VIAL ONE (13:34)
[2016-12-09] MEDS ORDERED: ROCURONIUM BROMIDE INJ 50 MG/5 ML VIAL IV ONE (13:34)
[2016-12-09] MEDS ORDERED: NEOSTIGMINE METHYLSULFATE 10 MG/10 ML VIAL ONE (13:34)
[2016-12-09] MEDS: KETOROLAC TROMETHAMINE 10 MG TABLET PO PRN ×2 (15:56→22:01)
[2016-12-09] MEDS: ERTAPENEM SODIUM 1 GM in NORMAL SALINE 50 ML IV SCH (18:04)
[2016-12-10] MEDS: KETOROLAC TROMETHAMINE 10 MG TABLET PO PRN (07:26)
[2016-12-10 08:59] VITALS: BP 123/67
--- NOTE | 2016-12-10 09:28 | DISCHARGE SUMMARY E ---
Discharge Summary NAME: BRUNA HASSAN : 1995 AGE: 21Y ADMITTED: 12/07/2016 DISCHARGED: 12/10/2016 FINAL DIAGNOSIS: Common bile duct stone and acute calculous cholecystitis. PROCEDURES DONE: ERCP with removal of common bile duct stone and sphincterotomy done by Dr. Albert on 12/08/2016. Laparoscopic cholecystectomy done by Dr. Márquez on 12/09/2016. HOSPITAL COURSE: This is a 21-year-old female who complained of abdominal pains with nausea and vomiting. Ultrasound study of the abdomen in the ER showed gallstones and dilated common bile duct. Her white count remained normal even on admission. However, LFTs were elevated with total bilirubin at 5 with AST around 600 and ALT 900. Alkaline phos was at 195. Post ERCP liver enzymes came down and she became asymptomatic. She was on IV Invanz on admission. Post ERCP she underwent laparoscopic cholecystectomy on 12/09/[address] Márquez. She did have acute cholecystitis. Postoperatively she was complaining of mild incisional pains and tolerating soft diet well. She was advised not to do any heavy lifting for the next 2 weeks. She can go back to work in 2 weeks. DICTATING PHYSICIAN: ERIK DELONG M.D. [id number] Y#: [id number] ID: [id number] JOB#: [id number] ACCT: [id number] cc:ERIK DELONG M.D. [facility],
== END 2016-12-10 10:52 | disposition home or self-care (01) | DRG 419 ==
LOC: ER 09:35 → UNDOADMIN 13:46 → EH 13:46 → 4S 15:20 → EH 15:20 → 4S 15:33
PROVIDERS: ATTEND Surgery
PROC: 0FC88ZZ Extirpation of Matter from Cystic Duct, Via Natural or Artificial Opening Endoscopic (ICD-10-PCS; 2016-12-08 13:30)
PROC: 0FT44ZZ Resection of Gallbladder, Percutaneous Endoscopic Approach (ICD-10-PCS; principal; 2016-12-09 08:00)
DX: K80.62 Calculus of gallbladder and bile duct with acute cholecystitis without obstruction (principal); Z91.040 Latex allergy status; Z88.8 Allergy status to other drugs, medicaments and biological substances
CPT/HCPCS: 36415; 43262; 43264; 740; 74328; 76705; 790; 80053; 80074; 80076; 81001; 81025; 83690; 85025; 85027; 85610; 87040; 88304; 96361; 96365; 96375; 99285; J0131; J0330; J1100; J1170; J1335; J1610; J1741; J2250; J2370; J2405; J2550; J2704; J2765; J3010; J3490; J7030